=== PATIENT | male | born 1990 | race Two or more races ===

== ENCOUNTER 2023-09-22 10:26 | Emergency (ER) | payer MEDICAID, OTHER ==
[~2023-09-22] VITALS: Ht 177.8 cm; Wt 72.7 kg
[2023-09-22] MEDS ORDERED: methylPREDNISolone SOD SUCC 125 MG/2 ML VL IV ONE (10:30)
[2023-09-22] MEDS ORDERED: METH4PAK PO (12:35)
[2023-09-22] MEDS ORDERED: methylPREDNISolone SOD SUCC 125 MG/2 ML VL ONE (12:55)
[2023-09-22] MEDS ORDERED: ONDANSETRON HCL 4 MG/2 ML VIAL ONE (12:55)
[2023-09-22] MEDS ORDERED: ONDANSETRON HCL 4 MG/2 ML VIAL IV ONE (13:00)
[2023-09-22 13:26] VITALS: BP 108/73; PULSE 96; RESP 20; TEMP 98.7; O2SAT 100
== END 2023-09-22 14:25 | disposition home or self-care (01) ==
LOC: ER 10:26 → EDBD 10:26 → ER 14:25
DX: T78.40XA Allergy, unspecified, initial encounter (principal); E11.9 Type 2 diabetes mellitus without complications; F17.210 Nicotine dependence, cigarettes, uncomplicated; X58.XXXA Exposure to other specified factors, initial encounter
CPT/HCPCS: 71045; 74176; 96374; 96375; 99285; J2405; J2930